=== PATIENT | female | born 2000 | race Caucasian/White ===

== ENCOUNTER 2020-08-24 10:36 | Emergency (ER) | payer MEDICAID ==
[~2020-08-24] VITALS: Ht 162.6 cm; Wt 65.5 kg
[2020-08-24 12:02] VITALS: BP 115/71
== END 2020-08-24 12:06 | disposition home or self-care (01) ==
LOC: ER 10:36
DX: R04.2 Hemoptysis (principal); M54.89 Other dorsalgia; Z87.440 Personal history of urinary (tract) infections; Z86.14 Personal history of Methicillin resistant Staphylococcus aureus infection; Z88.0 Allergy status to penicillin
CPT/HCPCS: 71045; 99283